=== PATIENT | male | born 1990 | race Caucasian/White ===

== ENCOUNTER 2022-03-11 03:23 | Emergency (ER) | payer OTHER, MEDICAID ==
[~2022-03-11] VITALS: Ht 185.4 cm; Wt 151.0 kg
[2022-03-11 03:29] VITALS: BP 141/88
--- NOTE | 2022-03-11 04:03 | NUR ---
31 yo/m biba from home w c/o lower back pain radiating to R thigh 10/10 sharp pressure constant x2 weeks worsening past 2 hours after stretching. Pt denies groin symptoms, loss of control over bowel or bladder or known injury to back. pt laying supine in bed. ERMD at bedside assessing pt. pmh: scoliosis, fractured injury ("when I was younger") allergies: denies
[2022-03-11] MEDS ORDERED: diazePAM 5 MG TAB PO ONE (04:10)
[2022-03-11] MEDS ORDERED: KETOROLAC 30 MG/ML VIAL IM ONE (04:10)
[2022-03-11] MEDS ORDERED: HYDROcodone/APAP 5/325 MG 1 TAB TAB PO ONE (04:10)
--- NOTE | 2022-03-11 04:52 | NUR ---
PT APPEARS TO BE RESTING W EYES CLOSED. BREATHING EVEN AND UNLABORED. WILL CONTINUE TO MONITOR.
--- NOTE | 2022-03-11 05:09 | NUR ---
patient back to bed via w/c
[2022-03-11] MEDS ORDERED: DIAZ5TAB6 PO (05:41)
[2022-03-11] MEDS ORDERED: NAPR-54 PO (05:41)
[2022-03-11] MEDS ORDERED: LID5T TP (05:41)
--- NOTE | 2022-03-11 05:41 | NUR ---
PT REPORTS FEELING BETTER, PAIN GONE BUT HAS SOME PAIN WHEN WALKING. OT AMBULATORY W A LIMP. ERMD AWARE.
[2022-03-11 06:01] VITALS: BP 125/87
--- NOTE | 2022-03-11 06:01 | NUR ---
Patient discharged with v/s stable. Written and verbal after care instructions given and explained. Patient alert, oriented and verbalized understanding of instructions. Ambulatory with steady gait. All questions addressed prior to discharge. ID band removed. Patient advised to follow up with PMD. Rx of DIAZEPAM, LIDODERM, NAPROXEN given. Patient educated on indication of medication including possible reaction and side effects. Opportunity to ask questions provided and answered.
[2022-03-11] MEDS ORDERED: MORPHINE SULFATE 4 MG/ML SYR IM ONE (06:25)
--- NOTE | 2022-03-11 06:25 | NUR ---
PATIENT CONTINUES WITH PAIN, NIKOLAS TEMPLETON GAVE NEW ORDER FOR PAIN MEDS. PATIENT STATES NOT DRIVING SELF HOME.
[2022-03-11] MEDS ORDERED: MORPHINE SULFATE 4 MG/ML SYR ONE (06:28)
== END 2022-03-11 06:01 | disposition home or self-care (01) ==
LOC: MED 03:23
DX: M54.50 Low back pain, unspecified (principal); Z79.899 Other long term (current) drug therapy; Z79.1 Long term (current) use of non-steroidal anti-inflammatories (NSAID)
CPT/HCPCS: 72100; 96372; 99284; J1885; J2270

== ENCOUNTER 2022-04-04 12:12 | Emergency (ER) | payer OTHER, MEDICAID ==
[~2022-04-04] VITALS: Ht 185.4 cm; Wt 140.8 kg
[~2022-04-04 12:12] MED LIST: DIAZ5TAB6 PO; LID5T TP; NAPR-54 PO
[2022-04-04 12:17] VITALS: BP 166/91
[2022-04-04] MEDS ORDERED: MORPHINE SULFATE 4 MG/ML SYR IM ONE (12:50)
[2022-04-04] MEDS ORDERED: CYCLOBENZAPRINE 10 MG TAB PO ONE (12:50)
--- NOTE | 2022-04-04 12:58 | NUR ---
31/M PRESENTS TO ED WITH C/O BACK PAIN X4 WEEKS, DENIES INJURY OR TRAUMA, STATES PAIN CAME ON SUDDENLY AT WORK. REPORTS TAKING IBUPROFEN AND BACLOFEN BUT REPORTS PAIN HAS BEEN WORSENING. PATIENT AMBULATORY IN ED TODAY WITH USE OF PERSONAL CANE.
[2022-04-04] MEDS ORDERED: ACET-8386 PO (13:54)
[2022-04-04] MEDS ORDERED: LID5T TP (13:55)
[2022-04-04 14:14] VITALS: BP 140/95
--- NOTE | 2022-04-04 14:14 | NUR ---
Patient discharged with v/s stable. Written and verbal after care instructions ABOUT [facility] given and explained. Patient alert, oriented and verbalized understanding of instructions. Ambulatory with steady gait. All questions addressed prior to discharge. ID band removed. Patient advised to follow up with PMD. Rx of HYDROCODONE 5-325, LIDODERM PATCH given. Patient educated on indication of medication including possible reaction and side effects. Opportunity to ask questions provided and answered.
== END 2022-04-04 14:14 | disposition home or self-care (01) ==
LOC: MED 12:12
DX: M54.40 Lumbago with sciatica, unspecified side (principal); Z98.890 Other specified postprocedural states
CPT/HCPCS: 81002; 96372; 99283; J2270

== ENCOUNTER 2023-06-15 17:40 | Emergency (ER) | payer MEDICAID, OTHER ==
[~2023-06-15 17:40] MED LIST changes: +ACET-8905 PO
--- NOTE | 2023-06-15 18:10 | NUR ---
CALLED MULTIPLE TIMES NO ANSWER
== END 2023-06-15 18:10 | disposition left against medical advice (07) ==
LOC: MED 17:40
DX: M79.673 Pain in unspecified foot (principal); Z53.21 Procedure and treatment not carried out due to patient leaving prior to being seen by health care provider

== ENCOUNTER 2023-08-12 12:46 | Emergency (ER) | payer MEDICAID ==
[~2023-08-12] VITALS: Ht 185.4 cm; Wt 162.9 kg
[2023-08-12 12:58] VITALS: BP 125/65; PULSE 114; RESP 20; TEMP 97.9; O2SAT 94
[2023-08-12] MEDS ORDERED: DOXY-690 PO (13:24)
== END 2023-08-12 13:32 | disposition home or self-care (01) ==
LOC: MED 12:46
DX: S31.109A Unspecified open wound of abdominal wall, unspecified quadrant without penetration into peritoneal cavity, initial encounter (principal); Z79.899 Other long term (current) drug therapy; Z79.1 Long term (current) use of non-steroidal anti-inflammatories (NSAID); Z79.2 Long term (current) use of antibiotics; X58.XXXA Exposure to other specified factors, initial encounter; Y92.89 Other specified places as the place of occurrence of the external cause; Y93.89 Activity, other specified; Y99.8 Other external cause status
CPT/HCPCS: 99281